=== PATIENT | male | born 1950 | race Caucasian/White ===

== ENCOUNTER 2023-03-23 08:33 | Day surgery (SDC) | payer OTHER, SELFPAY ==
--- NOTE | 2023-03-23 | MASS_PTH ---
PATIENT: ANNA TIPTON [place] [facility] [place][id number] AGE/SX: 72/M ROOM: RE03/23/[address]: Dr. Dash Augustin MD : 1950 BED: DIS: 03/23/2023 SPEC #: [id number] RECD: 03/23/23 15:57 STATUS: RUBINA VICTOR M #: [id number] MARILYN: 03/23/23 00:[address]: Dash Augustin DEPT: SURGICAL PATHOLOGY RECD BY: Khoi Yi ENTERED: 03/24/23 11:55 SP TYPE: Mass OTHR DR: [facility] Tissues: A - Scalp, NOS B - Scalp, NOS Procedures: Surgery Specimen Level III HEADER OPERATION: Excision soft tissue masses, top of scalp x2 at vertex PRE-OP DIAGNOSIS: Mass of scalp, 5.5 cm soft tissue mass top of scalp at right vertex; 2 cm soft tissue mass top of scalp at left vertex TISSUE SUBMITTED: A - 5.5 cm soft tissue mass top of scalp at right vertex, B - 2 cm soft tissue mass top of scalp at left vertex MICROSCOPIC DIAGNOSIS A. Soft tissue mass, top of scalp at right vertex, excision: Sebaceous cyst. B. Soft tissue mass, top of scalp at left vertex, excision: Sebaceous cyst with focal calcification. DONTRELL:mireille 03/25/2023 MICROSCOPIC DESCRIPTION Slides are reviewed. GROSS DESCRIPTION A - Received in fixative is one container labeled with the patient's name and designated 5.5 cm soft tissue mass top of scalp at right vertex. The specimen consists of a previously, partially sectioned piece of noguera nodule measuring 5.0 x 3.5 x 2.0 cm. Multiple pieces of variable sized skin are also noted measuring in aggregate 4.5 x 3.0 x 0.3 cm. The nodule shows central cystic area filled with yellowish sebum-like material. Continuity Reader sections are submitted in three cassettes. B - Received in fixative is one container labeled with the patient's name and designated 2 cm soft tissue mass top of scalp at left vertex. The specimen consists of a noguera, indurated nodule measuring 2.0 x 1.5 x 1.0 cm. The specimen is totally submitted in one cassette. / DONTRELL:mireille 03/24/2023 TC:5 CPT: 00849 x2
[2023-03-23 09:00] VITALS: BP 169/91; PULSE 68; RESP 16; TEMP 36.2; O2SAT 100; BMI 28.1
[2023-03-23] MEDS: Lactated Ringers 1,000 ML 15 ML IV (09:11)
[2023-03-23] MEDS: Lidocaine 1%/Epi 1:200 (30ml) 30 ML AMPUL (12:00)
[2023-03-23] MEDS: Mupirocin Ointment 22gm Tube 1 APPLIC (13:00)
[2023-03-23 13:10] VITALS: BP 140/95; BP 169/91; PULSE 72; RESP 16; TEMP 36.2; O2SAT 95
[2023-03-23 13:15] VITALS: BP 151/87; BP 169/91; PULSE 66; RESP 16; O2SAT 98
[2023-03-23 13:30] VITALS: BP 150/82; BP 169/91; PULSE 64; RESP 16; O2SAT 97
[2023-03-23 13:35] VITALS: BP 156/92; BP 169/91; PULSE 65; RESP 16; TEMP 36.3; O2SAT 96
--- NOTE | 2023-03-23 14:22 | PCM.OPRPT ---
Problems Associated Problem List Diagnoses (1) Mass of scalp: (2) Alopecia: Report of Operation Date of Procedure: 03/23/23 Pre-Operative Diagnosis: 1. 5.5 cm soft tissue mass top of scalp at vertex, right. 2. 2 cm soft tissue mass top of scalp at vertex, left. 3. Alopecia. Post-Operative Diagnosis: Same. Surgery/Procedure Performed:: 1. Excision 5.5 cm soft tissue mass top of scalp at vertex, right, with 5 cm layered closure. 2. Excision 2 cm soft tissue mass top of scalp at vertex, left, with 2 cm layered closure. Description of Surgical Findings:: 72 year old man presents with soft tissue masses x2 on top of his scalp at vertex that have increased in size over the last several months.? He denies recent infection.? He denies trauma.? He denies drainage.? There is some discomfort when he zhao his hair.? Patient was informed of the risks and complications of the procedure including alternatives to surgery. These were discussed with the patient personally. Patient voices understanding and wishes to proceed. Some of the risks and complications were included in a form from the [employer]. Potential risks and complications included but not inclusive of bleeding, infection, seroma, hematoma, bruising, swelling, loss of sensation to skin, wound breakdown, need for wound care, poor scarring, poor aesthetic outcome, intra operative cardiac or neurologic events, DVT, PE, and reaction to anesthesia. I used Leelee absorbable hemostat, (I used two vials). Reference Number - [id number]. Lot Number - [id number]. Expiration - October 04, 2027. I used Surgicel absorbable hemostat, 4 x 8 cm. Lot Number - [id number]. Expiration - July 07, 2027. Surgeon: Dash Augustin MD container finisher: Roberto Stewart RNFA Type of Anesthesia: General Anesthesiologist: Clifford Payan MD and Leonila Santiago CRNA Specimen's removed: 1. Soft tissue mass top of scalp at right vertex, clinically pilar cyst to Pathology and Microbiology. 2. Soft tissue mass top of scalp at left vertex, clinically pilar cyst to Pathology. Drains: None. Estimated Blood Loss (mL): 100. Description of Procedure: Patient was taken to OR in supine position and was placed under general anesthesia. The scalp and neck areas were prepped and draped in the usual fashion. SCD's were placed for DVT prophylaxis. Perioperative antibiotics were given intravenously. Using xylocaine with epinephrine, the scalp masses were infiltrated. After waiting 5 minutes for the anesthetic to take effect, I made an elliptical incision over the larger mass down into the subcutaneous tissue. The overlying skin was thinned from the growth of the mass. The mass was well encapsulated and firm. Dissection continued to the periosteum. It was not adherent to the periosteum. After complete dissection from surrounding tissue, the larger mass was excised and placed on the back table. Due to its firmness, I made an incision into the mass. The contents were combination of dark fluid and thickened exudate. A sample was sent for culture. I then made an elliptical incision over the smaller mass. It was easily dissected from the surrounding soft tissue and excised. Both masses were then sent to Pathology for analysis to rule out carcinoma. Persistent bleeding was noted after excision of the masses. Hemostasis was attempted with electrocautery. Some oozing continued. I sprayed Leelee absorbable hemostat into the wound to minimize seroma formation. I used 2 vials. I started to close the wounds with 4-0 Monocryl interrupted sutures for the deep dermis and subcutaneous tissue. I was fpc done with suturing when it was noted there was continued oozing. The sutures were removed and the oozing came from the needle sticks from the suturing. I held compression with gauze to obtain hemostasis. Additionally, I placed Surgicel absorbable hemostat into the wound as well for additional hemostasis. After control was obtained, I restarted the suturing process. I used 4-0 Monocryl interrupted sutures for the deep dermis and subcutaneous tissue. The skin was approximated with 4-0 Monocryl simple interrupted and vertical mattress interrupted sutures. No further evidence of oozing was noted. Antibiotic ointment was applied to the suture lines followed by compression gauze dressing with 4x4 gauze and a Kerlix gauze head wrap. Estimated operative blood loss was about 100 ml. Patient tolerated the procedure well and was sent to PACU in satisfactory condition. Patient will be sent home on antibiotics and pain medication. He will keep his head elevated during the initial postoperative period. Patient will followup in the office tomorrow for a wound check and to evaluate for any evidence of continued oozing. If seen, the sutures will be removed and will begin wound care until healed. Also will discuss the Pathology report when it becomes available and will discuss the culture result when it becomes available. A positive culture will necessitate antibiotic therapy. Grafts/Implants Used: Surgicel, and Leelee Procedure Start Time: 11:35 Procedure Stop Time: 13:02 Complications None. Admit VTE Documentation VTE Present on Admission: No VTE Mechan Device Prophylaxis: SCD's VTE Pharm Prophylaxis ordered?: No Addendum Addendum: Surgery Charges CPT - 08915 ICD-10 - R22.0, L65.9 73791 R22.0, L65.9
--- NOTE | 2023-03-23 14:22 | PCM.DC ---
Discharge Instructions Diet Discharge Diet: No restrictions Activity Discharge Activity: May Not Drive, May Shower (in two days.) and - (keep head elevated. no heavy lifting.) May shower in (days): 2 Weight Bearing Status: Weight bearing as tolerated Lifting Restrictions: 10 lbs. Keep extremity elevated above heart level: - (elevate head.) Dressing / Incision Call your doctor if your incision/area has: Continuous Slow Oozing, Sudden Increased Bleeding, Increased Pain/ Swelling, Increased Redness, Foul Smelling Discharge and Swelling at the incision site Call your doctor if you observe: Fever of 101 or Higher, Coldness, Increased Pain, Shortness of breath, Chest pain, Calf discomfort and Uncontrolled pain Suture Line Care: - (apply antibiotic ointment to suture lines daily.) Cleanse incision/area with: - (may get incisions wet in the shower in two days.) Follow Up Care Please Follow Up With: Dash Augustin MD When: , 03/24/23. call [phone] for appt. Test Results: Test results from this visit will be discussed in further detail at your follow-up appointment, if applicable. Discharge Plan Admission Primary Reason for Your Visit: excision soft tissue masses scalp. Attending Provider: Dash Augustin Primary Care Provider: [place], [place] Discharge Orders/Prescriptions Prescriptions: New clindamycin HCl [Cleocin HCl] 300 mg capsule 300 mg PO TID Qty: 15 0RF L.acidoph,saliva-B.bif-S.therm [Acidophilus Probiotic Blend] 175 mg capsule 1 cap PO DAILY Qty: 20 0RF oxycodone-acetaminophen [Percocet] 5-325 mg tablet 1 tab PO Q6H PRN (Reason: pain (scale score 7-10)) 7 Days Qty: 28 0RF Rx Instructions: 28 tabs (twenty-eight) Continued atorvastatin 10 mg tablet 10 mg PO QPM hydrochlorothiazide 12.5 mg tablet 12.5 mg PO DAILY glucosamine-chondroitin 900 mg tablet 900 mg PO DAILY coenzyme Q10 10 mg capsule 10 mg PO DAILY flaxseed oil 1,000 mg capsule 1,000 mg PO DAILY Rx Instructions: administer with a meal hawthorn 500 mg capsule 500 mg PO BID multivitamin Tablet 1 tab PO DAILY saw palmetto 160 mg capsule 160 mg PO DAILY Rx Instructions: give with meal/snack Held aspirin [Adult Aspirin Regimen] 81 mg tablet,delayed release (DR/EC) 81 mg PO DAILY Hold Instructions: Resume on 03/30/23. garlic 300 mg capsule 300 mg PO BID Hold Instructions: Resume on 03/29/23. vitamin E (dl, acetate) 180 mg (400 unit) capsule 180 mg PO DAILY Hold Instructions: Resume on 03/30/23. Referrals / Follow Up: Dash Augustin MD [Med Staff - Active Staff] - (followup 03/24/23) [facility] [Primary Care Provider] - Disposition Disposition (needs filled in before D/C Order can be placed): Home, Self Care
[2023-03-23 14:58] VITALS: BP 152/94; BP 169/91; PULSE 65; RESP 16; TEMP 36.4; O2SAT 99
== END 2023-03-23 15:03 | disposition home or self-care (01) ==
LOC: SDC 08:36 → AC 08:39
PROVIDERS: Referring Provider Surgery; Visit Provider Surgery
PROC: (CPT 21012; principal; 2023-03-23 09:40)
DX: L72.3 Sebaceous cyst (principal); L72.11 Pilar cyst; L72.12 Trichodermal cyst; L65.9 Nonscarring hair loss, unspecified; I10 Essential (primary) hypertension; E78.00 Pure hypercholesterolemia, unspecified; M19.90 Unspecified osteoarthritis, unspecified site; Z79.82 Long term (current) use of aspirin; Z79.899 Other long term (current) drug therapy
CPT/HCPCS: 21012; 21011; 00300; 87070; 87075; 87077; 87102; 87176; 87186; 87205; 87206; 88304; 88305; J7120; J2405